=== PATIENT | female | born 1985 | race Caucasian/White ===

== ENCOUNTER 2017-01-02 12:55 | Emergency (ER) | payer BC, OTHER ==
[2017-01-02 13:00] VITALS: BP 130/67; PULSE 95; TEMP 97.9; BMI 24.7
--- NOTE | 2017-01-02 13:52 | PDOC ---
History of Present Illness - General Chief Complaint: Injury Stated Complaint: LACERATION TO RT FINGER Time Seen by Provider: 01/02/17 13:32 History Source: Patient Exam Limitations: No Limitations - History of Present Illness Initial Comments: 01/02/17 13:46 31 yr female with avulsion to right thumb at home slicing carrots. tetanus is UTD. no medical history or allergies. 01/02/17 13:47 Past History - Past Medical History Allergies/Adverse Reactions: Allergies Allergy/AdvReac Type Severity Reaction Status Date / Time No Known Allergies Allergy Verified 01/02/17 12:57 Home Medications: Ambulatory Orders [id number]/Iron Fumarate/FA/Dss [ 19 Tablet] 1 each PO ASDIR 01/02/17 Other medical history: celiac dz - Psycho/Social/Smoking Cessation Hx Anxiety: No Suicidal Ideation: No Smoking History: Never smoked Have you smoked in the past 12 months: No Information on smoking cessation initiated: No Hx Alcohol Use: No Drug/Substance Use Hx: No Substance Use Type: None *Physical Exam - Vital Signs Last Vital Signs Temp Pulse Resp BP Pulse Ox 97.9 F 95 H 18 130/67 100 01/02/17 12:57 01/02/17 12:57 01/02/17 12:57 01/02/17 12:57 01/02/17 12:57 - Physical Exam General Appearance: Yes: Nourished, Appropriately Dressed HEENT: positive: EOMI, [place] Neck: positive: Supple. negative: Tender Respiratory/Chest: positive: Lungs Clear, Normal Breath Sounds Cardiovascular: positive: Regular Rhythm, Regular Rate Musculoskeletal: positive: Normal Inspection Extremity: positive: Normal Capillary Refill, Other (right thumb with skin avulsion at the tip pos bleeding, nv intact FROM ) Integumentary: positive: Normal Color, Dry, Warm Neurologic: positive: Fully Oriented, Alert, Normal Mood/Affect, Normal Response , Motor Strength 5/5 Procedures - Laceration/Wound Repair Right Distal 1st digit Wound Length: to 2.5 cm Wound Explored: clean (avulsion of skin to the tip of the thumb ) Betadine Prep: Yes Sterile Dressing Applied: Yes Progress: 01/02/17 13:48 placed surgicel to the avulsion and coban compression dressing. Medical Decision Making - Medical Decision Making 01/02/17 13:56 cc: avulsion to the tip of the finger tetanus is UTD surgicel placed to the tip of the finger and compression dressing placed, hemostasis controlled dc instructions given to pt and her all questions asked and answered at dc *DC/Admit/Observation/Transfer Diagnosis at time of Disposition: Avulsion of skin of finger Qualifiers: Encounter type: initial encounter Qualified Code(s): S61.209A - Unspecified open wound of unspecified finger without damage to nail, initial encounter - Patient Instructions Additional Instructions: keep the dressing in place for 2 days then soak the finger in warm water to remove the gauze that has turned black on the tip of your finger keep clean and dry and place bacitracin or neopsorin to the wound once a day and keep covered until healed
== END 2017-01-02 13:57 | disposition home or self-care (01) ==
LOC: JERFT 12:55
PROC: 0HQFXZZ Repair Right Hand Skin, External Approach (ICD-10-PCS; principal; 2017-01-02)
DX: S61.001A Unspecified open wound of right thumb without damage to nail, initial encounter (principal); W26.0XXA Contact with knife, initial encounter; Y93.G1 Activity, food preparation and clean up; Y92.018 Other place in single-family (private) house as the place of occurrence of the external cause
CPT/HCPCS: 99281-25